=== PATIENT | female | born 1975 | race Caucasian/White ===

== ENCOUNTER → 2017-01-18 | Day surgery (SDC) | payer OTHER ==
[~2017-01-18] MED LIST: LIDOCAINE W/ SODIUM BICARB 0.5 ML SYR ONE; Lactated Ringers 1,000 ML PRIMARY IV ONE; fentaNYL Inj 100 MCG/2 ML VIAL ONE
--- NOTE | 2017-01-18 09:35 | GEN.OPNOTE ---
Colonoscopy Procedure Note Surgery Date: 01/18/17 Preoperative Diagnosis: Bright red blood per rectum. Chronic constipation. Postoperative Diagnosis: Bright red blood per rectum. Chronic constipation. Procedure: Complete colonoscopy. Surgeon: Cl Sánchez MD Anesthesia Provider: Omar Izaguirre CRNA Anesthesia Type: MAC Indications: See preoperative diagnosis. Findings: Prep : [Excellent] Cecum : [Normal] Ascending : [Normal] Transverse : [Normal] Sigmoid : [Normal] Rectum : [Normal] Digital Rectal Exam : [External hemorrhoids. No internal hemorrhoids amenable to local treatment.] A lubricated flexible colonoscope was inserted and passed to the blind end of the cecum. The blind end of the cecum, appendiceal orifice, and ileocecal valve were clearly seen. Air was aspirated as the scope was withdrawn. The entire colonoscopy was normal without polyp, tumor, neoplastic mass, infectious or inflammatory process identified. The scope was withdrawn completing the procedure. Patient tolerated the procedure well without complication. She was taken to outpatient surgery in stable condition. Follow-up will be in my office needed basis. It is recommended she undergo follow-up colonoscopy in 10 years. Recommend 1% cortisone cream for flareup of hemorrhoids. Continue the MiraLAX and try to regulate her bowels.
[2017-01-18 09:59] VITALS: RESP 14
[2017-01-18 10:14] VITALS: TEMP 97
== END | disposition home or self-care (01) ==
LOC: SDSC 07:48
PROVIDERS: ATTEND Surgery
DX: K62.5 Hemorrhage of anus and rectum (principal); K59.09 Other constipation
CPT/HCPCS: 45378; J2704; J3010; J7120